=== PATIENT | female | born 1945 | race Caucasian/White ===

== ENCOUNTER 2017-12-07 11:16 | Emergency (ER) | payer MEDICARE ==
[2017-12-07 12:11] LABS: Urine Appearance Clear; Urine Blood Negative (Negative); Urine Color Yellow; Urine Ketones Negative (Negative); Urine Protein Negative (Negative); Urine Urobilinogen Negative (Negative)
[2017-12-07 12:37] LABS: ABS Basophils 0 10^3/ul (0-0.2); ABS Eosinophils 0.1 10^3/ul (0-0.6); ABS Lymphocytes 2.5 10^3/ul (1.0-4.8); ABS Monocytes 0.4 10^3/ul (0-0.8); ABS Neutrophils 3.5 10^3/ul (1.5-7.7); ABS Nucleated RBC 0 10^3/ul; Eosinophil % 1.3 % (0-6); Hematocrit 41 % (35-47); Hemoglobin 14.2 g/dl (12.0-16.0); Lymphocyte % 38.2 % (25-47); Mean Corpuscular HGB Conc 34 g/dl (31-36); Mean Corpuscular Hemoglobin 31 pg (27-31); Mean Corpuscular Volume 89 fL (80-97); Mean Platelet Volume 9 um3 (7.4-10.4); Nucleated Red Blood Cells % 0; Platelet Count 190 10^3/ul (150-450); Red Blood Count 4.61 10^6/ul (4.0-5.4); Red Cell Distribution Width 13 % (10.5-15); White Blood Count 6.5 10^3/ul (3.5-10.8)
[2017-12-07 12:51] LABS: EGFR Non-African American 76.4 (>60)
[2017-12-07 12:54] LABS: INR 1.2 (0.77-1.02)
--- NOTE | 2017-12-07 12:54 | RAD ---
Indication: Central to LEFT chest pain. Comparison: February 10, 2009 Technique: Upright AP 1235 hours Report: Accounting for superimposed soft tissues with large body habitus the lungs and pleural spaces are clear. Negative for pneumothorax. Negative for cardiomegaly. Unremarkable central pulmonary vasculature. Mildly tortuous descending thoracic aorta. IMPRESSION: No evidence for acute intrathoracic disease.
[2017-12-07 15:48] VITALS: BP 138/72
--- NOTE | 2017-12-08 16:46 | ED ---
José Miguel Sharp Thomas, scribed for Donte Vegas MD on 12/07/17 at 1148 . HPI Chest Pain - HPI Summary HPI Summary: The patient is a 72 year old female presenting with an episode of sudden-onset sharp midsternal chest pain that began this morning after she ate breakfast. The episode lasted 3-4 minutes. The patient also had left arm tingling during the episode of shortness of breath. In the emergency department, she denies shortness of breath and palpitations. Past medical history includes paroxysmal A -Fib, and the patient has a cardiac ablation. - History of Current Complaint Chief Complaint: EDChestPainROMI Time Seen by Provider: 12/07/17 11:28 Hx Obtained From: Patient Onset/Duration: Started Hours Ago - onset this morning Timing: Lasting Minutes - 3-4 minutes Initial Severity: Moderate Current Severity: None Pain Intensity: 0 Pain Scale Used: 0-10 Numeric Chest Pain Location: Discrete at: - midsternal Chest Pain Radiates: No Character: Sharp/Stabbing Aggravating Factor(s): Nothing Alleviating Factor(s): Spontaneous Resolution Associated Signs and Symptoms: Positive: Other: - Left arm tingling. Negative: Shortness of Breath, Fever, Palpitations - Allergy/Home Medications Allergies/Adverse Reactions: Allergies Allergy/AdvReac Type Severity Reaction Status Date / Time MS NSAIDs [NSAIDs] Allergy See Comment Verified 06/17/16 08:04 opiates Allergy GI Upset Uncoded 06/17/16 08:04 PMH/Surg Hx/FS Hx/Imm Hx Endocrine/Hematology History: Denies: Hx Diabetes - INSULIN RESISTENT Cardiovascular History: Reports: Hx Atrial Fibrillation - paroxysmal, Hx Hypertension Respiratory History: Denies: Hx Asthma, Hx Chronic Obstructive Pulmonary Disease (COPD) - Cancer History Hx Chemotherapy: No Hx Radiation Therapy: No - Surgical History Surgery Procedure, Year, and Place: RIGHT KNEE REPLACEMENT, L KNEE MESICUS, L LEG VEIN SURGERY. CARDIAC ABLATION Infectious Disease History: No Infectious Disease History: Denies: Traveled Outside the [place] in Last 30 Days - Family History Known Family History: Positive: Other - Patient denies relevant family history - Social History Alcohol Use: Rare Substance Use Type: Reports: None Smoking Status (MU): Never Smoked Tobacco Review of Systems Negative: Fever Positive: Chest Pain. Negative: Palpitations Negative: Shortness Of Breath Neurological: Other - Tingling left arm All Other Systems Reviewed And Are Negative: Yes Physical Exam - Summary Physical Exam Summary: VITAL SIGNS: Reviewed. GENERAL: ~Patient is a well-developed and nourished female who is lying comfortable in the stretcher. ~Patient is not in any acute respiratory distress. HEAD AND FACE: No signs of trauma. ~No ecchymosis, hematomas or skull depressions. No sinus tenderness. EYES: PERRLA, EOMI x 2, No injected conjunctiva, no nystagmus. EARS: Hearing grossly intact. Ear canals and tympanic membranes are within normal limits. MOUTH: Oropharynx within normal limits. NECK: Supple, trachea is midline, no adenopathy, no JVD, no carotid bruit, no c- spine tenderness, neck with full ROM. CHEST: Symmetric, no tenderness at palpation LUNGS: Clear to auscultation bilaterally. No wheezing or crackles. CVS: Regular rate and rhythm, S1 and S2 present, no murmurs or gallops appreciated. ABDOMEN: Soft, non-tender. No signs of distention. No rebound no guarding, and no masses palpated. Bowel sounds are normal. EXTREMITIES: FROM in all major joints, no edema, no cyanosis or clubbing. NEURO: Alert and oriented x 3. No acute neurological deficits. Speech is normal and follows commands. SKIN: Dry and warm Triage Information Reviewed: Yes Vital Signs On Initial Exam: Initial Vitals Temp Pulse Resp BP Pulse Ox 97.9 F 56 18 173/89 99 12/07/17 11:17 12/07/17 11:17 12/07/17 11:17 12/07/17 11:17 12/07/17 11:17 Vital Signs Reviewed: Yes Diagnostics - Vital Signs Vital Signs Temp Pulse Resp BP Pulse Ox 12/07/17 11:17 97.9 F 56 18 173/89 99 - Laboratory Result Diagrams: 12/07/17 12:00 12/07/17 12:00 Lab Statement: Any lab studies that have been ordered have been reviewed, and results considered in the medical decision making process. - Radiology CXR Xray Interpretation: No Acute Changes - No evidence for acute intrathoracic disease. Dr. Vegas has reviewed this report. Radiology Interpretation Completed By: Radiologist - EKG 11:25 Cardiac Rate: Bradycardia EKG Rhythm: Sinus Bradycardia - at 59 BPM EKG Interpretation: No ST elevations. Normal axis. Chest Pain Course/Dx - Course Assessment/Plan: The patient is a 72 year old female presenting with an episode of sudden-onset sharp midsternal chest pain that began this morning after she ate breakfast. The episode lasted 3-4 minutes. The patient also had left arm tingling during the episode of shortness of breath. In the emergency department , she denies shortness of breath and palpitations. Past medical history includes paroxysmal A-Fib, and the patient has a cardiac ablation. Test results are without significant abnormality. Two troponins four hours apart are negative. Urinalysis is negative for UTI. CXR shows no acute pathology. The patient continues to be asymptomatic and have no complaints. Therefore, the patient will be discharged home to follow up with primary care. The patient is hemodynamically stable and alert and oriented x3. - Diagnoses Provider Diagnoses: Atypical chest pain Discharge - Discharge Plan Condition: Stable Disposition: HOME Patient Education Materials: Chest Pain (ED) Referrals: Marino Alvarenga MD [Primary Care Provider] - 3 Days Additional Instructions: Follow up with your primary care provider in three days. Return to the emergency department for any new or worsening symptoms. The documentation as recorded by the José Miguel phelan Thomas accurately reflects the service I personally performed and the decisions made by , Donte Vegas MD.
== END 2017-12-07 15:45 | disposition home or self-care (01) ==
LOC: ED 11:16
DX: R07.89 Other chest pain (principal); Z88.6 Allergy status to analgesic agent; Z88.5 Allergy status to narcotic agent
CPT/HCPCS: 36415; 71045; 80053; 81003; 82550; 82553; 83605; 83735; 83880; 84443; 84484; 85025; 85610; 85730; 93005; 99283